=== PATIENT | female | born 1995 | race Caucasian/White ===

== ENCOUNTER 2017-01-24 19:11 | Emergency (ER) | payer BC ==
[~2017-01-24] VITALS: Ht 175.3 cm; Wt 64.4 kg
[2017-01-24 20:45] VITALS: BP 119/78
== END 2017-01-24 20:48 | disposition home or self-care (01) ==
LOC: ED 20:42
DX: S09.90XA Unspecified injury of head, initial encounter (principal); V43.52XA Car driver injured in collision with other type car in traffic accident, initial encounter; Y93.89 Activity, other specified; Y92.410 Unspecified street and highway as the place of occurrence of the external cause; Y99.8 Other external cause status
CPT/HCPCS: 72050; 99284

== ENCOUNTER 2017-01-26 06:31 | Emergency (ER) | payer BC ==
[~2017-01-26] VITALS: Ht 175.3 cm; Wt 65.5 kg
[2017-01-26] MEDS ORDERED: SODIUM CHLORIDE 0.9% 1,000ML IVBOLUS ONE (08:30)
[2017-01-26] MEDS ORDERED: SODIUM CHLORIDE FLUSH 10ML SYR IVF ONE (08:30)
[2017-01-26 08:58] LABS: BLOOD UREA NITROGEN 14 mg/dL (7-18)
[2017-01-26 10:46] VITALS: BP 122/68
== END 2017-01-26 10:49 | disposition home or self-care (01) ==
LOC: ED 10:11
DX: S16.1XXA Strain of muscle, fascia and tendon at neck level, initial encounter (principal); S06.0X0A Concussion without loss of consciousness, initial encounter; S33.5XXA Sprain of ligaments of lumbar spine, initial encounter; V89.2XXA Person injured in unspecified motor-vehicle accident, traffic, initial encounter; Y93.89 Activity, other specified; Y92.89 Other specified places as the place of occurrence of the external cause; Y99.8 Other external cause status
CPT/HCPCS: 36415; 70450; 72110; 72125; 80048; 82040; 84703; 85025; 96360; 96361; 99285; J7030